=== PATIENT | male | born 1970 | race Caucasian/White ===

== ENCOUNTER → 2017-12-10 | Outpatient (REF) ==
--- NOTE | 2017-12-10 12:22 | DI ---
EXAM: Chest two view, frontal and lateral views. HISTORY: Employment screening. COMPARISON: 12/02/2015. FINDINGS: The heart size is normal. There is no pulmonary vascular congestion. The lungs are clear . No pleural effusion or pneumothorax is seen. No acute osseous abnormality identified. Since the prior study, there has been no significant interval change. IMPRESSION: No acute cardiopulmonary process.
== END ==
LOC: RAD 10:58
DX: Z02.89 Encounter for other administrative examinations (principal)